=== PATIENT | male | born 1940 | race Caucasian/White ===

== ENCOUNTER 2016-07-05 11:01 | Emergency (ER) ==
[2016-07-05 11:13] VITALS: TEMP 99.4; BMI 30.9
--- NOTE | 2016-07-05 11:32 | ED.PDOC ---
General ED Provider: Dr. RAYNA TESFAYE JR Chief Complaint: Dizziness Stated Complaint: DIZZINESS. CAUSING UNSTEADY GAIT. WAS SEATED APPRO 45 MIN WHEN SUDDENLY BECAME DIZZY.[End] 99.4 92 20 95% 181/94 6/10 Time Seen by Physician: 11:30 Information Source: Patient Exam Limitations: No limitations Nursing and Triage Documentation Reviewed and Agree: No Review of Systems - Review Of Systems Constitutional: Reports: Malaise, Weakness Eyes: Reports: No symptoms Ears, Nose, Mouth, Throat: Reports: No symptoms, Throat pain Respiratory: Reports: No symptoms Cardiac: Reports: No symptoms GI: Reports: No symptoms : Reports: No symptoms Musculoskeletal: Reports: No symptoms Skin: Reports: No symptoms Neurological: Reports: Weakness (light headed maybe spinning) Endocrine: Reports: No symptoms Hematologic/Lymphatic: Reports: No symptoms All Other Systems: Other Past Medical History - Past Medical History Endocrine: Reports: DM 2 Cardiovascular: Reports: Hypertension Respiratory: Reports: None Hematological: Reports: None Gastrointestinal: Reports: None Genitourinary: Reports: Kidney stones Neuro/Psych: Reports: None Musculoskeletal: Reports: None Cancer: Reports: Colon, Skin, Other (COLON, PROSTATE& SKIN CA) - Surgical History General Surgical History: Reports: Unknown - Family History Family History: Reports: Unknown - Social History Smoking Status: Former smoker Hx Substance Use: No Alcohol Screening: None Physical Exam - Physical Exam Appearance: Well-appearing, Obese Ill-appearing: Mild Eyes: ANTWON, EOMI, Conjunctiva clear ENT: Nose normal, Oropharynx normal, TMs Occluded Neck: Supple Respiratory: Airway patent, Breath sounds clear, Breath sounds equal, Respirations nonlabored Cardiovascular: RRR, Pulses normal, No rub, No murmur GI/: Soft, Nontender, No masses, Bowel sounds normal, No Organomegaly Musculoskeletal: Normal strength, ROM intact, No edema, No calf tenderness Skin: Warm, Dry, Normal color Neurological: Sensation intact, Motor intact, Reflexes intact, Cranial nerves intact, Alert, Oriented Critical Care Note - Critical Care Note Total Time (mins): 0 Course - Course Orders, Labs, Meds: Lab Review 07/05/16 11:50 Influenza A (Rapid) Negative Influenza B (Rapid) Negative Orders Category Date Time Status MOLECULAR GROUP A STREP Stat LAB 07/05/16 11:50 Results RAPID FLU A/B Stat LAB 07/05/16 11:50 Completed STREP SCREEN Stat LAB 07/05/16 11:50 Results Meclizine HCl [Antivert] MEDS 07/05/16 11:45 Discontinued 25 mg PO ONCE STA Medications Discontinued Medications Generic Name Dose Route Start Last Admin Trade Name Madelin PRN Reason Stop Dose Admin Meclizine HCl 25 mg 07/05/16 11:45 07/05/16 11:49 Antivert PO 07/05/16 11:46 25 mg ONCE STA Administration Vital Signs: Temp Pulse Resp BP Pulse Ox 07/05/16 11:04 99.4 F 92 H 20 181/94 H 95 Departure - Departure Time of Disposition: 12:25 Disposition: HOME SELF-CARE Discharge Problem: Impacted cerumen of both ears, Vertigo Instructions: Cerumen Impaction (ED), Vertigo (ED) Condition: Good Pt referred to PMD for follow-up: Yes Additional Instructions: limit activity for two to three days until symptoms resolve sweet oil 4 to 8 drops each ear once daily for one week recheck ears in one to two weeks to assess for impaction of earwax Allergies/Adverse Reactions: Allergies No Known Allergies Allergy (Unverified 07/05/16 11:13) Home Medications: Ambulatory Orders Amlodipine Besylate [Norvasc] 10 mg PO DAILY 07/05/16 Hydrochlorothiazide 50 mg PO DAILY 07/05/16 Lisinopril 20 mg PO BID 07/05/16 Metformin HCl [Metformin HCl ER] 500 mg PO BID 07/05/16 Metoprolol Tartrate 100 mg PO DAILY 07/05/16 Potassium Chloride [Klor-Con 10] 10 meq PO DAILY 07/05/16
[2016-07-05] MEDS ORDERED: ANTIVERT PO STA (11:45)
[2016-07-05 12:11] LABS: FLU INTERNAL QC INTERNAL QC VALID; RAPID FLU A NEGATIVE (NEGATIVE); RAPID FLU B NEGATIVE (NEGATIVE)
[2016-07-05 12:49] VITALS: BP 161/92
== END 2016-07-05 12:46 | disposition home or self-care (01) ==
LOC: ED 11:01
DX: R42 Dizziness and giddiness (principal); H61.23 Impacted cerumen, bilateral; Z79.899 Other long term (current) drug therapy
CPT/HCPCS: 87651; 87804; 87880; 99283